=== PATIENT | female | born 1945 | race Two or more races ===

== ENCOUNTER 2017-10-01 12:41 | Outpatient (CLI) | payer OTHER ==
[~2017-10-01 12:41] MED LIST: ACTONEL5 MG PO; CONEX TABLET1 EACH PO; DOLOGEN CAPLET1 EACH PO; FLEXERIL10 MG PO; OSEL75CA PO; PROSOM2 MG PO; PROTONIX40 MG PO; ZANTAC300 MG PO; [UNRECOGNIZED DRUG - REMARK]
== END 2017-10-01 13:08 | disposition home or self-care (01) ==
LOC: RAD 501 12:41
DX: J06.9 Acute upper respiratory infection, unspecified (principal)